=== PATIENT | male | born 1945 | race Caucasian/White ===

== ENCOUNTER 2017-05-15 11:29 | Emergency (ER) | payer OTHER ==
[~2017-05-15] VITALS: Ht 182.9 cm; Wt 77.4 kg
[2017-05-15 11:33] VITALS: TEMP 36.8; Ht 182.9 cm; Wt 77.4 kg
[2017-05-15] MEDS ORDERED: ASPI81TA28 PO (11:44)
[2017-05-15] MEDS ORDERED: LEVO88TA3 PO (11:44)
[2017-05-15 12:33] LABS: BASO % 0.5 %; BASO ABS # 0.05 K/uL (0-0.2); COMPLETE YES; EOS % 1.7 %; HEMATOCRIT 43.7 % (42-52); IG% 0.4 %; LYMPH % 15.9 %; LYMPH ABS # 1.56 K/uL (1.2-3.4); MEAN CELL VOLUME 88.8 fL (80-100); MEAN CORPUSCULAR HEMOGLOBIN 30.5 pg (25-34); MEAN CORPUSCULAR HGB CONC 34.3 g/dl (32-36); MONO % 11.2 %; NEUT % 70.3 %; PLATELET COUNT 240 K/uL (130-400); RED BLOOD COUNT 4.92 M/uL (4.7-6.1); WHITE BLOOD COUNT 9.82 K/uL (4.8-10.8)
[2017-05-15 12:40] LABS: BUN/CREATININE RATIO 12.3 (10-20); CALCIUM 8.7 mg/dl (8.5-10.1); CREATININE 1.1 mg/dl (0.60-1.40); POTASSIUM 3.6 mmol/L (3.5-5.1)
--- NOTE | 2017-05-15 14:06 | DIAGNOSTIC IMAGING REPORT ---
HEAD WITHOUT CONTRAST (CT) CT DOSE: 537.48 mGy.cm HISTORY: Mental status change weakness TECHNIQUE: Multiaxial CT images of the head were performed without the use of intravenous contrast. A dose lowering technique was utilized adhering to the principles of ALARA. Comparison: None. Findings: The paranasal sinuses and mastoid air cells are clear. Extensive vasogenic edema of the right temporal lobe region. Mass effect with midline shift to the left approximating 1 cm. A partial effacement of the suprasellar cistern. Very subtle deformity of the quadrigeminal plate cistern. No evidence for acute intracranial hemorrhage. Partial effacement of the right cerebral sulci as compared to the left. Impression: 1. Probable mass right temporal lobe with considerable surrounding vasogenic edema. 2. Possibility of primary brain neoplasm such as glioblastoma must be considered 3. MRI of the brain is suggested as follow-up. 4. No evidence for acute intracranial hemorrhage. 5. Midline shift to the left of approximately 1 cm This report was phoned to the emergency room The above report was generated using voice recognition software. It may contain grammatical, syntax or spelling errors. Electronically signed by: Cole Monae M.D. 05/15/2017 2:05 PM Dictated Date/Time: 05/15/2017 2:00 PM
--- NOTE | 2017-05-15 16:15 | DIAGNOSTIC IMAGING REPORT ---
MRI OF THE BRAIN WITHOUT AND WITH IV CONTRAST CLINICAL HISTORY: Confusion, headaches. Right temporal lobe mass. COMPARISON STUDY: CT scan dated 05/15/2017 TECHNIQUE: MRI of the brain was performed from the vertex to the skull base utilizing various T1 and T2 weighted sequences. Following the IV administration of 7.5 mL of Gadavist contrast, additional enhanced images were obtained. FINDINGS: Sagittal T1, axial diffusion, proton density and T2 weighted axial, coronal FLAIR, and pre and post axial T1-weighted images were acquired. These were supplemented with post gadolinium coronal T1 weighted images. There is a 5.3 cm ring-enhancing right temporal lobe mass. There is moderately extensive surrounding vasogenic edema. There is 8 mm of right to left midline shift. There is mild right hemispheric sulcal effacement. No additional enhancing lesions are visualized. Within the central portion of the presumed neoplasm, there is an 18 mm focus of restricted water diffusion. There is no evidence of ventricular dilatation. Proton density T2-weighted and FLAIR images reveal extensive vasogenic edema within the right temporal lobe. There is also right frontal lobe edema, and right parietal lobe edema. There are no abnormal flow voids. IMPRESSION: 5.3 cm ring enhancing right temporal lobe mass with extensive surrounding vasogenic edema. The findings are viewed as suspicious for a primary neoplasm such as a glioblastoma. Neurosurgical referral for biopsy is recommended. Electronically signed by: Bib Muir M.D. 05/15/2017 4:14 PM Dictated Date/Time: 05/15/2017 4:08 PM
[2017-05-15] MEDS ORDERED: LEVETIRACETAM IV 500 MG in DEXTROSE 5% 100ML 100 ML IV ONE (17:00)
[2017-05-15 17:18] VITALS: BP 160/90; PULSE 85; O2SAT 96
--- NOTE | 2017-05-15 17:35 | EMERGENCY ROOM VISIT NOTE ---
History Report prepared by Florencia: Isabella Hawthorne Under the Supervision of: Dr. Steve Anand D.O. First contact with patient: 12:48 Chief Complaint: ALTERED MENTAL STATUS Stated Complaint: CHANGE IN MENTAL STATUS Nursing Triage Summary: pt reports WHIPPLE that happens in the morning on the R side of head and goes to back of head, daily with weak feeling on L side of body X 2 or 3 weeks , denies vision changegs denies difficulty speaking. reports " when I play the piano with my L hand I have to think about what keys to touch with what fingers in order to play correctly this is ongoing X 2 weeks " History of Present Illness The patient is a 72 year old male who presents to the Emergency Room with complaints of persistent left sided weakness starting 3 weeks ago. The patient was sent to the ED by the doctor at the assisted over concern of TIA or stroke. He states that he is having headache, body twitching, and confusion. He also reports episodes of tingling, sweating, and smelling a "pungent sweet" smell which happens 3-4 times a week. He seems to have trouble remembering things unless he is focusing. He cannot tell what his hands are doing unless he is looking at them and his left leg is wobbly and weak. He also notes a dry cough. He notes that he recently had a change in medications. His thyroid medication was changed and he was started on cholesterol medications. He says that since then his symptoms have worsened. Source of History: patient Onset: 3 weeks ago Position: other (left sided) Quality: other (weakness) Timing: other (persistent) Associated Symptoms: + headache, + diaphoresis, + cough Note: Pt reports body twitching, confusion, tingling, smelling things. Review of Systems See HPI for pertinent positives & negatives. A total of 10 systems reviewed and were otherwise negative. Past Medical & Surgical Medical Problems: (1) Hypothyroidism Family History No pertinent family history stated. Social History Smoking Status: Never Smoker Housing Status: other (assisted) Occupation Status: other (prisoner) Current/Historical Medications Scheduled Aspirin (Aspirin Ec), 81 MG PO DAILY Levothyroxine Sodium (Levothyroxine Sodium), 88 MCG PO DAILY Allergies Coded Allergies: Atorvastatin (Unverified Allergy, Intermediate, ., 05/15/17) Physical Exam Vital Signs Date Time Temp Pulse Resp B/P (MAP) Pulse Ox O2 Delivery O2 Flow Rate FiO2 05/15/17 17:08 18 160/90 96 Room Air 05/15/17 14:33 74 18 160/98 95 Room Air 05/15/17 13:01 72 16 161/90 96 Room Air 05/15/17 12:18 74 05/15/17 11:33 36.8 76 20 176/100 97 Room Air Physical Exam VITAL SIGNS: were reviewed as above. GENERAL:Non-toxic in appearance. SKIN: Warm dry and pink. HEAD: Normocephalic and atraumatic. OROPHARYNX: Is clear and moist NECK: Supple without lymphadenopathy or meningismus. LUNGS: clear. HEART: Regular rate and rhythm. ABDOMEN: Soft and nontender. EXTREMITIES: Warm and well perfused. NEUROLOGICALLY: Awake alert and oriented without focal deficit. Cranial nerves 2 -12 are intact. There is no pronator drift. Cerebellar testing is within normal limits. There is no nystagmus. There is no facial droop. Speech is clear. Vision is grossly normal. MUSCULOSKELETAL: Good muscle tone. No evidence of trauma. Medical Decision & Procedures ER Provider Diagnostic Interpretation: Radiology results as stated below per my review and radiologist interpretation: HEAD WITHOUT CONTRAST (CT) CT DOSE: 537.48 mGy.cm HISTORY: Mental status change weakness TECHNIQUE: Multiaxial CT images of the head were performed without the use of intravenous contrast. A dose lowering technique was utilized adhering to the principles of ALARA. Comparison: None. Findings: The paranasal sinuses and mastoid air cells are clear. Extensive vasogenic edema of the right temporal lobe region. Mass effect with midline shift to the left approximating 1 cm. A partial effacement of the suprasellar cistern. Very subtle deformity of the quadrigeminal plate cistern. No evidence for acute intracranial hemorrhage. Partial effacement of the right cerebral sulci as compared to the left. Impression: 1. Probable mass right temporal lobe with considerable surrounding vasogenic edema. 2. Possibility of primary brain neoplasm such as glioblastoma must be considered 3. MRI of the brain is suggested as follow-up. 4. No evidence for acute intracranial hemorrhage. 5. Midline shift to the left of approximately 1 cm This report was phoned to the emergency room The above report was generated using voice recognition software. It may contain grammatical, syntax or spelling errors. Electronically signed by: Cole Monae M.D. 05/15/2017 2:05 PM Dictated Date/Time: 05/15/2017 2:00 PM MRI OF THE BRAIN WITHOUT AND WITH IV CONTRAST CLINICAL HISTORY: Confusion, headaches. Right temporal lobe mass. COMPARISON STUDY: CT scan dated 05/15/2017 TECHNIQUE: MRI of the brain was performed from the vertex to the skull base utilizing various T1 and T2 weighted sequences. Following the IV administration of 7.5 mL of Gadavist contrast, additional enhanced images were obtained. FINDINGS: Sagittal T1, axial diffusion, proton density and T2 weighted axial, coronal FLAIR, and pre and post axial T1-weighted images were acquired. These were supplemented with post gadolinium coronal T1 weighted images. There is a 5.3 cm ring-enhancing right temporal lobe mass. There is moderately extensive surrounding vasogenic edema. There is 8 mm of right to left midline shift. There is mild right hemispheric sulcal effacement. No additional enhancing lesions are visualized. Within the central portion of the presumed neoplasm, there is an 18 mm focus of restricted water diffusion. There is no evidence of ventricular dilatation. Proton density T2-weighted and FLAIR images reveal extensive vasogenic edema within the right temporal lobe. There is also right frontal lobe edema, and right parietal lobe edema. There are no abnormal flow voids. IMPRESSION: 5.3 cm ring enhancing right temporal lobe mass with extensive surrounding vasogenic edema. The findings are viewed as suspicious for a primary neoplasm such as a glioblastoma. Neurosurgical referral for biopsy is recommended. Electronically signed by: Bib Muir M.D. 05/15/2017 4:14 PM Dictated Date/Time: 05/15/2017 4:08 PM Laboratory Results 05/15/17 11:15 Red Blood Count 4.92, Mean Corpuscular Volume 88.8, Mean Corpuscular Hemoglobin 30.5, Mean Corpuscular Hemoglobin Concent 34.3, Mean Platelet Volume 11.0, Neutrophils (%) (Auto) 70.3, Lymphocytes (%) (Auto) 15.9, Monocytes (%) (Auto) 11.2, Eosinophils (%) (Auto) 1.7, Basophils (%) (Auto) 0.5, Neutrophils # (Auto ) 6.90, Lymphocytes # (Auto) 1.56, Monocytes # (Auto) 1.10, Eosinophils # (Auto ) 0.17, Basophils # (Auto) 0.05 05/15/17 11:15 Test 05/15/17 11:15 White Blood Count 9.82 K/uL (4.8-10.8) Red Blood Count 4.92 M/uL (4.7-6.1) Hemoglobin 15.0 g/dL (14.0-18.0) Hematocrit 43.7 % (42-52) Mean Corpuscular Volume 88.8 fL (80-100) Mean Corpuscular Hemoglobin 30.5 pg (25-34) Mean Corpuscular Hemoglobin Concent 34.3 g/dl (32-36) Platelet Count 240 K/uL (130-400) Mean Platelet Volume 11.0 fL (7.4-10.4) Neutrophils (%) (Auto) 70.3 % Lymphocytes (%) (Auto) 15.9 % Monocytes (%) (Auto) 11.2 % Eosinophils (%) (Auto) 1.7 % Basophils (%) (Auto) 0.5 % Neutrophils # (Auto) 6.90 K/uL (1.4-6.5) Lymphocytes # (Auto) 1.56 K/uL (1.2-3.4) Monocytes # (Auto) 1.10 K/uL (0.11-0.59) Eosinophils # (Auto) 0.17 K/uL (0-0.5) Basophils # (Auto) 0.05 K/uL (0-0.2) RDW Standard Deviation 43.5 fL (36.4-46.3) RDW Coefficient of Variation 13.4 % (11.5-14.5) Immature Granulocyte % (Auto) 0.4 % Immature Granulocyte # (Auto) 0.04 K/uL (0.00-0.02) Anion Gap 6.0 mmol/L (3-11) Est Creatinine Clear Calc Drug Dose 66.5 ml/min Estimated GFR () 77.3 Estimated GFR (Non- 66.7 BUN/Creatinine Ratio 12.3 (10-20) Calcium Level 8.7 mg/dl (8.5-10.1) Total Bilirubin 0.5 mg/dl (0.2-1) Aspartate Amino Transf (AST/SGOT) 16 U/L (15-37) Alanine Aminotransferase (ALT/SGPT) 19 U/L (12-78) Alkaline Phosphatase 91 U/L (45-117) Total Protein 7.1 gm/dl (6.4-8.2) Albumin 3.6 gm/dl (3.4-5.0) Globulin 3.5 gm/dl (2.5-4.0) Albumin/Globulin Ratio 1.0 (0.9-2) Laboratory results as stated above per my review. ECG Indication: weakness Rate (beats per minute): 72 Rhythm: normal sinus Findings: no ectopy, other (no acute injury) ED Course 1248: Previous medical records were reviewed. The patient was evaluated in room B5. A complete history and physical examination was performed. 1402: Dr. Monae from radiology has informed me that the CT indicates a brain tumor. He recommends an MRI. 1641: I reevaluated the patient. I update him on the results. 1654: I discussed the patient's case with Dr. Steward, [facility]. He recommends 500 mg of IV Keppra. He does not recommend steroids for the patient at this time. He recommends transfer to [place] where he will evaluate the patient. 1700: Levetiracetam 500 mg/Dextrose 105 ml @ 420 mls/hr IV. 1706: I discussed the patient's case with Dr. Hayden, [place]. The patient will be transferred to their facility for further evaluation. 1715: I reevaluated the patient. I discussed the results and treatment plan with him. He verbalized understanding and agreement. He will be transferred to [place] for further management. Medical Decision Differential includes acute coronary syndrome, myocardial infarction, CVA, TIA, anemia, infection, pneumonia, UTI, pyelonephritis, poor nutrition, dehydration, electrolyte disturbance,hypoglycemia. This is a 72-year-old male who presents to the ED with a chief complaint of abnormal strokelike symptoms. The patient states that he has had some twitching as well as some loss of function of his left hand intermittently as well as feeling a little wobbly on his left side. He states that his symptoms began in April. He was sent here for further evaluation as his symptoms have progressed. The patient has a normal neurological exam at this time. He does report that he has some difficulty with buttoning his shirts if he is not looking. The patient also states that he has difficulty playing the piano at times. A CT scan of the brain revealed a mass the right temporal lobe. An MRI reveals a 5.5 cm right temporal lobe mass with vasogenic edema and is concerning for glioblastoma. Neurosurgical referral was recommended for biopsy. Blood work was unremarkable. He was told results test. I spoke with a Dr. Steward from [facility] neurosurgery. He recommends transferring the patient to the emergency room. He recommended IV Keppra. 500 mg IV was administered. The patient will be transported to [facility] emergency Department for further evaluation. Medication Reconcilliation Current Medication List: was personally reviewed by me Consults Time Called: 1639 Consulting Physician: Dr. Steward, [facility] Returned Call: [phone] I discussed the patient's case with him. He recommends 500 mg of IV Keppra. He does not recommend steroids for the patient at this time. He recommends transfer to [place] where he will evaluate the patient. Additional Consults: Time Called: 1656 Consulted Physician: Dr. Hayden, [place] Returned Call: [phone] Additional Comments: I discussed the patient's case with him. The patient will be transferred to their facility for further evaluation. Impression Primary Impression: Brain tumor Scribe Attestation The scribe's documentation has been prepared under my direction and personally reviewed by me in its entirety. I confirm that the note above accurately reflects all work, treatment, procedures, and medical decision making performed by me. Departure Information Dispostion Transfer Acute Care Facility Referrals Candy PINEDA (PCP) Patient Instructions [facility] Additional Instructions Go to [place] [facility] for evaluation. Dr. Steward is the neurosurgeon there who will see you.
== END 2017-05-15 18:10 | disposition short-term general hospital (02) ==
LOC: C.EDB 11:32
DX: D49.6 Neoplasm of unspecified behavior of brain (principal); E03.9 Hypothyroidism, unspecified; Z79.82 Long term (current) use of aspirin; Z79.899 Other long term (current) drug therapy; Z88.8 Allergy status to other drugs, medicaments and biological substances